=== PATIENT | male | born 1995 | race Caucasian/White ===

== ENCOUNTER 2016-03-18 13:44 | Emergency (ER) | payer OTHER ==
[2016-03-18] MEDS ORDERED: Ondansetron INJ* 2 MG/ML VIAL IV ONE (13:57)
[2016-03-18] MEDS ORDERED: Famotidine IV* 10 MG/ML 2 ML (20 mg) IV ONE (13:57)
[2016-03-18] MEDS: NS 0.9% 1000 ML* 2,000 ML IV ONE ×2 (14:29→15:40)
--- NOTE | 2016-03-18 14:35 | RAD ---
HISTORY: Abdominal pain COMPARISONS: None VIEWS: Frontal views of the abdomen. FINDINGS: BOWEL: There is a nonobstructive bowel gas pattern. There is a moderate amount of stool within the colon. CALCULI: There are no abnormal calculi. BONES AND SOFT TISSUES: There are no osseous abnormalities. OTHER FINDINGS: The lung bases are clear. There is no subphrenic gas. IMPRESSION: NONOBSTRUCTIVE BOWEL GAS PATTERN.
[2016-03-18 14:41] LABS: Hematocrit 50 % (42-52); Hemoglobin 16.9 g/dl (14.0-18.0); Mean Corpuscular HGB Conc 34 g/dl (31-36); Mean Corpuscular Hemoglobin 32 pg (27-31); Mean Corpuscular Volume 94 fL (80-94); Mean Platelet Volume 10 um3 (7.4-10.4); Red Cell Distribution Width 13 % (10.5-15); White Blood Count 13.4 10^3/ul (3.5-10.8)
[2016-03-18 15:01] LABS: Albumin 4.5 g/dL (3.2-5.2); BUN/Creatinine Ratio 17.9 (8-20); C Reactive Protein 21.32 mg/L (< 5.00); Calcium 9.8 mg/dL (8.6-10.3); EGFR Non-African American 101.1 (>60); Globulin 2.8 g/dL (2-4); Potassium 4.3 mmol/L (3.5-5.0); Total Protein 7.3 g/dL (6.4-8.9)
--- NOTE | 2016-03-18 16:47 | ED ---
Fercho Mejia Billy, scribed for Marcus Babb MD on 03/18/16 at 1359 . 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 presenting with constant epigastric pain since midnight late last night. Pain severity 8/10. He states that the pain is worse with movement. He reports N/V/D, but states that no blood was visualized in vomit or stool. He has had >10 episodes of emesis and diarrhea. He states that several classmates in his residence [place] have had similar symptoms recently. - History of Current Complaint Chief Complaint: EDAbdPain Stated Complaint: VOMITING Time Seen by Provider: 03/18/16 13:54 Hx Obtained From: Patient Onset/Duration: Gradual Onset, Lasting Hours, Still Present Timing: Constant Severity Initially: Moderate Severity Currently: Moderate Pain Intensity: 6 Pain Scale Used: 0-10 Numeric Location: Epigastric Radiates: No Aggravating Factor(s): Movement Alleviating Factor(s): Nothing Associated Signs And Symptoms: Positive: Nausea, Vomiting, Diarrhea - Allergies/Home Medications Allergies/Adverse Reactions: Allergies Allergy/AdvReac Type Severity Reaction Status Date / Time No Known Allergies Allergy Verified 03/18/16 13:51 PMH/Surg Hx/FS Hx/Imm Hx Endocrine/Hematology History: Denies: Hx Diabetes Cardiovascular History: Denies: Hx Hypertension Infectious Disease History: No Infectious Disease History: Denies: Traveled Outside the [place] in Last 30 Days - Family History Known Family History: Positive: Cardiac Disease, Other - anxiety - Social History Occupation: Student Alcohol Use: Occasionally Hx Substance Use: No Substance Use Type: Reports: None Hx Tobacco Use: No Smoking Status (MU): Never Smoked Tobacco Review of Systems Negative: Fever Positive: Abdominal Pain, Vomiting, Diarrhea, Nausea All Other Systems Reviewed And Are Negative: Yes Physical Exam - Summary Physical Exam Summary: VITAL SIGNS: Reviewed. GENERAL: Patient is a well developed and nourished male who is lying comfortable in the stretcher. Patient is not in any acute respiratory distress. HEAD AND FACE: Normocephalic and atraumatic. EYES: PERRLA, EOMI x 2, No injected conjunctiva. EARS: Hearing grossly intact. Ear canals and tympanic membranes are WNL. MOUTH: Oropharynx within normal limits. NECK: Supple, trachea is midline, no adenopathy, no JVD. CHEST: Symmetric, no tenderness at palpation LUNGS: Clear to auscultation bilaterally. No wheezing or crackles. CVS: RRR,, S1 and S2 present, no murmurs or gallops appreciated. ABDOMEN: Soft, non-tender. No signs of distention. Positive bowel sounds. No rebound no guarding, and no masses palpated. No abdominal bruit or pulsations. EXTREMITIES: FROM in all major joints, no edema, no cyanosis or clubbing. NEURO: Alert and oriented x 3. No acute neurological deficits. Speech is normal. SKIN: Dry and warm Triage Information Reviewed: Yes Vital Signs On Initial Exam: Initial Vitals Temp Pulse Resp BP Pulse Ox 99.1 F 100 18 135/78 100 03/18/16 13:48 03/18/16 13:48 03/18/16 13:48 03/18/16 13:48 03/18/16 13:48 Vital Signs Reviewed: Yes Diagnostics - Vital Signs Vital Signs Temp Pulse Resp BP Pulse Ox 03/18/16 13:48 99.1 F 100 18 135/78 100 - Laboratory Lab Results: Lab Results 03/18/16 03/18/16 03/18/16 Range/Units 14:30 14:30 14:30 WBC 13.4 H (3.5-10.8) 10^3/ul RBC 5.30 (4.0-5.4) 10^6/ul Hgb 16.9 (14.0-18.0) g/dl Hct 50 (42-52) % MCV 94 (80-94) fL MCH 32 H (27-31) pg MCHC 34 (31-36) g/dl RDW 13 (10.5-15) % Plt Count 179 (150-450) 10^3/ul MPV 10 (7.4-10.4) um3 Neut % (Auto) 88.2 H (38-83) % Lymph % (Auto) 2.9 L (25-47) % [place] % (Auto) 8.7 (1-9) % Eos % (Auto) 0 (0-6) % Baso % (Auto) 0.2 (0-2) % Absolute Neuts (auto) 11.8 H (1.5-7.7) 10^3/ul Absolute Lymphs (auto) 0.4 L (1.0-4.8) 10^3/ul Absolute Monos (auto) 1.2 H (0-0.8) 10^3/ul Absolute Eos (auto) 0 (0-0.6) 10^3/ul Absolute Basos (auto) 0 (0-0.2) 10^3/ul Absolute Nucleated RBC 0.01 10^3/ul Nucleated RBC % 0 Sodium 135 (133-145) mmol/L Potassium 4.3 (3.5-5.0) mmol/L Chloride 102 (101-111) mmol/L Carbon Dioxide 24 (22-32) mmol/L Anion Gap 9 (2-11) mmol/L BUN 17 (6-24) mg/dL Creatinine 0.95 (0.67-1.17) mg/dL Est GFR ( Amer) 130.0 (>60) Est GFR (Non-Af Amer) 101.1 (>60) BUN/Creatinine Ratio 17.9 (8-20) Glucose 121 H (70-100) mg/dL Lactic Acid 2.0 (0.5-2.0) mmol/L Calcium 9.8 (8.6-10.3) mg/dL Total Bilirubin 1.00 (0.2-1.0) mg/dL AST 21 (13-39) U/L ALT 14 (7-52) U/L Alkaline Phosphatase 103 (34-104) U/L C-Reactive Protein 21.32 H (< 5.00) mg/L Total Protein 7.3 (6.4-8.9) g/dL Albumin 4.5 (3.2-5.2) g/dL Globulin 2.8 (2-4) g/dL Albumin/Globulin Ratio 1.6 (1-3) Amylase 57 (29-103) U/L Lipase 63 (11.0-82.0) U/L Result Diagrams: 03/18/16 14:30 03/18/16 14:30 Lab Statement: Any lab studies that have been ordered have been reviewed, and results considered in the medical decision making process. - Radiology abd xray Radiology Interpretation Completed By: Radiologist - Nonobstructive bowel gas pattern. 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 Pain severity 8/10. He states that the pain is worse with movement. He reports N/V/D , but states that no blood was visualized in vomit or stool. He has had >10 episodes of emesis and diarrhea. He states that several classmates in his residence [place] have had similar symptoms recently. Bloodwork WNL except for WBC of 13.4 and glucose of 121. X-ray shows no acute pathology. In the ED course pt was given IV fluids for rehydration and Zofran for N/V. Afterwards, the patient s sx improved and is now asymptomatic. He will follow up with PCP and will be given an Rx for Zofran. - Diagnoses Differential Diagnosis/HQI/PQRI: Constipation, Urinary Tract Infection, Other - Diarrhea Provider Diagnoses: Nausea, vomiting, and diarrhea Discharge - Discharge Plan Condition: Stable Disposition: HOME Prescriptions: Ondansetron ODT TAB* [Zofran Odt TAB*] 4 mg PO Q6H PRN #10 tab.odt PRN Reason: Vomiting Patient Education Materials: Acute Nausea and Vomiting (ED), Acute Diarrhea (ED ) Referrals: [facility] [place] [facility] [Outside] The documentation as recorded by the Fercho emanuel Billy accurately reflects the service I personally performed and the decisions made by , Marcus Babb MD.
[2016-03-18 17:07] VITALS: BP 130/44
== END 2016-03-18 17:07 | disposition home or self-care (01) ==
LOC: ED 13:44
DX: R11.2 Nausea with vomiting, unspecified (principal); R19.7 Diarrhea, unspecified
CPT/HCPCS: 36415; 74020; 80053; 82150; 83605; 83690; 85025; 86140; 96360; 96374; 96375; 99283; J2405